=== PATIENT | male | born 1940 | race Caucasian/White ===

== ENCOUNTER → 2023-12-11 10:55 | Outpatient (REF) | payer MEDICARE, OTHER, SELFPAY | LOC: DHVS 10:55 | PROVIDERS: ATTENDING PHYSICIAN Surgery Vascular Surgery; FAMILY PHYSICIAN Family Medicine | DX: I65.22 Occlusion and stenosis of left carotid artery (principal) | CPT/HCPCS: 93880 ==

== ENCOUNTER → 2024-06-17 14:05 | Outpatient (REF) | payer MEDICARE, OTHER, SELFPAY | LOC: RAD 14:05 | PROVIDERS: ATTENDING PHYSICIAN Registered Nurse | DX: I65.29 Occlusion and stenosis of unspecified carotid artery (principal); I65.23 Occlusion and stenosis of bilateral carotid arteries | CPT/HCPCS: 93880 ==

== ENCOUNTER → 2025-06-22 11:23 | Outpatient (REF) | payer MEDICARE, OTHER, SELFPAY | LOC: RAD 11:23 | PROVIDERS: ATTENDING PHYSICIAN Registered Nurse; FAMILY PHYSICIAN Family Medicine | DX: I65.22 Occlusion and stenosis of left carotid artery (principal) | CPT/HCPCS: 93880 ==